=== PATIENT | male | born 1945 | race Caucasian/White ===

== ENCOUNTER 2016-11-17 12:32 | Inpatient (IN) | payer MEDICARE, BC ==
[2016-11-17] MEDS ORDERED: EPINEPHrine 1 MG/ML AMP ONE (12:45)
[2016-11-17] MEDS ORDERED: DEXAMETHASONE 10 MG/ML VIAL ONE (12:45)
[2016-11-17] MEDS ORDERED: diphenhydrAMINE INJ 50 MG/ML VIAL ONE (12:46)
[2016-11-17] MEDS ORDERED: EPINEPHrine 1 MG/ML AMP IM STA (12:46)
[2016-11-17] MEDS ORDERED: FAMOTIDINE 20 MG/2 ML VIAL ONE (12:46)
[2016-11-17] MEDS ORDERED: FAMOTIDINE 20 MG/50 ML 50 ML IV ONE ×2 (12:47→21:29)
[2016-11-17] MEDS ORDERED: DEXAMETHASONE 10 MG/ML VIAL IVP STA (12:47)
[2016-11-17] MEDS ORDERED: diphenhydrAMINE INJ 50 MG/ML VIAL IVP STA (12:47)
[2016-11-17] MEDS ORDERED: OXYMETAZOLINE NASAL SPRAY NAS ONE (12:58)
[2016-11-17] MEDS ORDERED: SODIUM CHLORIDE 0.9% 1,000 ML IV ONE ×2 (13:14→13:15)
[2016-11-17] MEDS ORDERED: LACTATED RINGERS 1,000 ML IV ONE (14:04)
[2016-11-17] MEDS ORDERED: BUPIVACAINE 0.5%-EPI 1:200000 PF 30 ML VIAL SUBQ ONE ×2 (14:20)
--- NOTE | 2016-11-17 14:44 | ED Physician Documentation ---
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 Review of Systems Nose: reports: Other (tongue swelling) Respiratory: denies: Dyspnea PD PAST MEDICAL HISTORY - Past Medical History Past Medical History: Yes Cardiovascular: Hypertension Respiratory: None Endocrine/Autoimmune: None GI: None : None HEENT: None Psych: None Musculoskeletal: None Derm: None - Past Surgical History Past Surgical History: Yes General: Colonoscopy - Present Medications Home Medications: Ambulatory Orders Medication Instructions Recorded Confirmed Metoprolol Tartrate 25 mg PO BID 11/19/14 11/17/16 Simvastatin [Zocor] 40 mg PO QPM 07/15/16 11/17/16 Aspirin [Aspir-Low] 81 mg PO DAILY 11/17/16 11/17/16 Fluticasone Propionate [Flovent 2 sprays INH DAILY 11/17/16 11/17/16 Diskus] Lisinopril/Hydrochlorothiazide 1 each PO DAILY 11/17/16 11/17/16 [Lisinopril-Hctz 20-25 mg Tab] Tadalafil [Cialis] 10 - 20 mg PO Q72H PRN 11/17/16 11/17/16 - Allergies Allergies/Adverse Reactions: Allergies Allergy/AdvReac Type Severity Reaction Status Date / Time lactase [From Dairy Aid] Allergy Anaphylaxis Verified 11/17/16 13:05 dairy products Allergy Anaphylaxis Uncoded 11/17/16 13:05 fluoride Allergy Anaphylaxis Uncoded 11/17/16 13:05 pollen Allergy Unknown Uncoded 11/17/16 13:05 trees Allergy Unknown Uncoded 11/17/16 13:05 - Social History Does the pt smoke?: No Smoking Status: Never smoker Does the pt drink ETOH?: Yes Does the pt have substance abuse?: No PD ED PE NORMAL - Vitals Vital signs reviewed: Yes - HEENT HEENT: Other (massive angioedema with tongue pressed against roof of mouth and swelling to sublingual region as well) - Cardiac Cardiac: RRR - Respiratory Respiratory: No respiratory distress, Clear bilaterally, Other (no wheeze or stridor) - Derm Derm: Other (no hives) Results - Vitals Vitals: Vital Signs - 24 hr 11/17/16 11/17/16 11/17/16 12:42 12:50 13:00 Heart Rate 70 130 H 125 H Respiratory 20 20 19 Rate Blood Pressure 168/92 H 160/75 H 149/73 H O2 Saturation 98 98 99 Oxygen O2 Source Room air PD MEDICAL DECISION MAKING - ED course ED course: immediately gave epi 0.3 IM and started IV and gave decadron, benadryl, pepcid called for anesthesia stat and Dr Suarez immediately to the ER to assist airway to difficult and Dr Suarez took pt to OR to attempt intubation with surgery standing by for possible emergent cric Dr Ureña called and also immediately came to the bedside pt slightly improved with meds given in the ER at the time he went to the OR called the dental office and it turns out the czech paste used today does contain flouride - so suspect this is the cause of sx and not the ACEI pt to go from OR to ICU Dr Miller hospitalist accepts pt after done in the OR - Critical Care Time(min): 30 Time Includes: Direct patient care, Reassess patient, Document care, Coordinate care, Medical consult, See progress note Departure - Departure Disposition: 66 [facility] DC/Xfer Clinical Impression: Angioedema Qualifiers: Encounter type: initial encounter Qualified Code(s): T78.3XXA - Angioneurotic edema, initial encounter Condition: Serious Discharge Date/Time: 11/17/16 13:15
[2016-11-17] MEDS ORDERED: SODIUM CHLORIDE FLUSH 0.9% 10 ML SYRINGE IVP PRN (14:45)
[2016-11-17] MEDS ORDERED: PHENOL THROAT SPRAY 177 ML MM PRN (14:50)
[2016-11-17] MEDS ORDERED: ONDANSETRON 4 MG/2 ML VIAL IVP PRN (14:50)
[2016-11-17] MEDS ORDERED: METOCLOPRAMIDE 10 MG/2 ML VIAL IVP PRN (14:50)
[2016-11-17] MEDS ORDERED: BENZOCAINE SPRAY MM PRN (14:50)
[2016-11-17] MEDS: PROPOFOL 1000 MG/100 ML 100 ML IV SCH ×2 (15:00→23:03)
[2016-11-17] MEDS ORDERED: KETAMINE 500 MG/10 ML VIAL IVP ONE (15:45)
[2016-11-17] MEDS ORDERED: MIDAZOLAM 2 MG/2 ML VIAL IVP ONE (15:45)
[2016-11-17] MEDS ORDERED: ceFAZolin 1 GM VIAL IV ONE (15:45)
[2016-11-17] MEDS ORDERED: PHENYLEPHRINE 50 MG/5 ML VIAL IV ONE (15:45)
[2016-11-17] MEDS ORDERED: ePHEDrine 50 MG/ML AMP IVP ONE (15:45)
[2016-11-17] MEDS ORDERED: SUCCINYLCHOLINE 200 MG/10 ML VIAL IVP ONE (15:45)
[2016-11-17] MEDS ORDERED: GLYCOPYRROLATE 1 MG/5 ML VIAL IVP ONE (15:45)
[2016-11-17] MEDS: HYDROmorphone 1 MG/ML SYRINGE IVP PRN ×2 (15:54→18:23)
[2016-11-17] MEDS: PANTOPRAZOLE 40 MG VIAL IVP SCH (15:58)
[2016-11-17] MEDS: SODIUM CHLORIDE FLUSH 0.9% 10 ML SYRINGE IVP SCH (15:58)
[2016-11-17 16:08] LABS: ABG ANALYSIS TIME 1604; ABG BASE EXCESS -3.4 mmol/L (-2.0-3.0); ABG HCO3 21.3 mmol/L (22.0-26.0); ABG PCO2 37 mmHg (34-45); ABG PH 7.38 (7.35-7.45); ABG TCO2 22.4 MMOL/L (21.0-29.0)
[2016-11-17 16:09] LABS: ABG MODE OF VENTILATION SIMV; ABG O2 DEVICE VENTILATOR; ABG OXYGEN SATURATION 99 % (94-98); ABG PEAK END EXPIRATORY PRESSU 5 cmH2O; ABG PRESSURE SUPPORT VENT 5 cmH2O; ABG RESPIRATORY RATE 12 b/min; ABG SATURATION PULSE OXIMETRY% 100 %; ABG SITE OF DRAW LEFT RADIAL; ALLEN TEST POSITIVE
--- NOTE | 2016-11-17 16:10 | OPERATIVE REPORT ---
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 POSTOPERATIVE DIAGNOSIS: Angioneurotic edema secondary to exposure to fluoride compromising his airwa y. PROCEDURE: Emergent tracheostomy. SURGEON: Jose Armando Ureña MD ANESTHESIA: Maggie Suarez MD, (general) plus 20 mL of 0.5% Marcaine with epinephrine. TIME: 1500 ESTIMATED BLOOD LOSS: Less than 20 mL. FLUIDS: 900 mL of crystalloid. DETAILS OF PROCEDURE: After informed consent was obtained detailing the risks of a possible tracheost kenneth, the patient was brought to the operative suite for safety reasons to have attempts made at gener al endotracheal anesthesia. Dr. Suarez and Javier Munoz were both present for the entire time and attem pted numerous times and with numerous maneuvers to have the patient intubated. There was no nasotrach eal tube available to allow a possible nasotracheal intubation. Several attempts were made with the G lideScope to place an endotracheal tube, but the edema was too much to allow for placement of the tub e, and in fact the 2 times that the tube was attempted to be placed, both times it was placed in the esophagus. I then attempted a retrograde intubation and was able to get the wire into the trachea, an d the wire to come out through the patient's nose followed by the catheter, but unfortunately, again, there was no nasotracheal tube that could be placed over this to permit for placement of this tube. Due to patient's declining O2 saturations, it was opted to discontinue this avenue and proceed with a tracheostomy. The skin was prepped and draped in the usual standard manner as best it could consider ing the fact that the patient was requiring constant bagging. A transverse incision was made in the s kin. Dissection down past the platysma was completed using Bovie electrocautery. The strap muscles we re seen, and every attempt was made to come into the middle of the strap muscles; however, the anteri or jugular vein on the right-hand side was entered. It caused a significant amount of bleeding that h ad to be suture ligated using 2-0 silk suture ligatures. Once this was controlled, dissection could b e carried out past the strap muscles to the trachea. There was a leak of anesthesia gas due to the pr evious opening in the trachea with the needle hole. Once the trachea itself was identified, a trachea l hook was used to lift it. The 2nd tracheal ring was selected as the source for the opening into the trachea. Bovie electrocautery was used to dissect above and below this ring. Next, 3-0 Prolene sutur es were placed on either side as stay sutures. The trachea was then opened in the midline. A trap doo r was not created. Instead just a vertical incision was made, and an attempt to place a size 6 trache ostomy tube was aborted when there was some bleeding from a suture that had slipped off the anterior jugular, as well as the balloon popping. A size 6 endotracheal tube was then obtained and placed into the opening to allow us to ventilate the patient while I attended to the bleeding from the anterior jugular vein on the inferior aspect. Again, this was suture ligated using a 3-0 silk suture ligature. Once we obtained another size 6 tracheostomy tube, the endotracheal tube was removed, and the trache ostomy tube was placed this time without difficulty. The balloon was inflated. Good CO2 was noted to be returning, and the patient was being ventilated well. The skin was approximated on either side usi ng a 2-0 nylon in a mattress fashion, which was then secured to the tracheostomy appliance. The 2 sta y sutures were taped to the anterior chest wall just in case there was any dislodgement of the trache ostomy tube necessitating replacement. This was for safety reasons. The patient then had a dressing p laced and was taken to the intensive care unit in good and stable condition having tolerated the proc edure well. The anticipation is once the angioneurotic edema resolves with time this tracheostomy tube should be able to be removed without difficulty, and the patient should be able to breathe on his own. JOB #: [id number] EXT JOB #:[id number]
[2016-11-17 16:12] LABS: ABG PO2 175 mmHg (80-100)
[2016-11-17] MEDS ORDERED: LIDOCAINE JELLY 2% 5 ML TUBE TOP ONE (16:45)
[2016-11-17] MEDS: D5NS W/20 MEQ KCL 1,000 ML IV SCH (17:00)
--- NOTE | 2016-11-17 17:03 | XRAY Report ---
FRONTAL CHEST: 11/17/2016 CLINICAL INDICATION: Status post tracheostomy. COMPARISON: 04/10/2008 Frontal view of the chest demonstrates an enlarged cardiac silhouette. A hiatal hernia is likely pre sent. There is left basilar air-space disease, which may represent atelectasis or infiltrate. Calci fied pleural plaquing is stable. No effusion or pneumothorax is present. A new tracheostomy tube is seen in the trachea above the level of the clavicles. IMPRESSION: POSTOPERATIVE CHANGES OF TRACHEOSTOMY. LEFT BASILAR ATELECTASIS OR INFILTRATE. CARDIOM EGALY AND HIATAL HERNIA. JOB #: [id number] EXT JOB #:[id number]
[2016-11-17] MEDS: PIPERACILLIN/TAZOBACTAM 3.375 GM in SODIUM CHLORIDE 0.9% MINIBAG 100 ML IV SCH (18:22)
[2016-11-17] MEDS ORDERED: diphenhydrAMINE INJ 50 MG/ML VIAL IVP PRN (18:43)
[2016-11-17] MEDS ORDERED: CHLORHEXIDINE GLUCONATE 15 ML UDC PO SCH (21:00)
[2016-11-17] MEDS ORDERED: FAMOTIDINE 20 MG in SODIUM CHLORIDE 0.9% 50 ML IV SCH (21:00)
--- NOTE | 2016-11-17 21:27 | HISTORY & PHYSICAL EXAMINATION ---
DATE OF ADMISSION: 11/17/2016 PRIMARY CARE PROVIDER: Oscar James MD ADMITTING PROVIDER: Mehnaz Miller MD CHIEF COMPLAINT: Severe throat swelling resulting in emergent tracheostomy. HISTORY OF PRESENT ILLNESS: The patient is a 71-year-old white male who is followed by Oscar James and is described in the medical record as not having any major medical issues. History is obtained from the EMR and some from the patient. He is currently intubated on propofol and it is difficult to ask questions of him. He is CRITICALLY ALLERGIC TO FLUORIDE. HE IS ALSO ALLERGIC TO POLLEN, TREES, DAIRY. He went to go see his dentist today for a teeth cleaning from what I understand and started developing a swollen tongue, and inability to speak. He took some Benadryl, but the swelling got worse and he brought himself to the emergency room, as he was having more and more dyspnea. He had massive angioedema with the tongue pressed against the roof of his mouth and swelling to the sublingual regions as well. He had no wheezing or stridor and on the skin he had no hives. He was given Decadron, Benadryl, Pepcid and epinephrine. Anesthesia was consulted stat, as was General Surgery, Dr. Ureña. Feeling that he needed urgent intubation with General Surgery standby for emergent cricothyroidotomy, he was taken to the OR. He was slightly improved with medications by the time he went to the OR. Dr. Williamson called the dental office and it turns out that the gibraltarian paste used today did contain fluoride, so the suspicion is either that he has an allergic reaction to the fluoride from a contact dermatitis or angioneurotic edema from an KAREEN inhibitor. In the OR, wire needed to be done through trachea and Anesthesia was unable to intubate using the guidewire. As such, he ended up having a tracheostomy. He is now in ICU. Awake, alert. Able to actually gesticulate with his hand and answer questions and use a clipboard in spite of being on Diprivan. Currently, his only discomfort is at throat. He denies wheezing, chest pain. He denies abdominal pain. He has no itching, no hives. His tongue and swelling have much improved. PAST MEDICAL HISTORY: 1. Hypertension. 2. Benign prostatic hypertrophy with erectile dysfunction. 3. Allergic rhinitis and sinusitis. 4. Shoulder impingement. 5. Metabolic syndrome with hyperlipidemia and obesity and hypertension. MEDICATIONS: 1. Aspirin 81 daily. 2. Cialis 10-20 mg p.o. q.72 hours p.r.n. 3. Flovent 2 sprays daily. 4. Hydrochlorothiazide/lisinopril 20/25 mg p.o. daily. 5. Metoprolol 25 mg p.o. b.i.d. 6. Zocor 40 mg p.o. q.p.m. SOCIAL HISTORY: He is a nonsmoker. Rare alcohol drinker. We have asked him if he would like us to identify and contact any family members. He says no. Specifically, the emergency contact listed for him is his son and he is again asking us to not contact him. FAMILY HISTORY: At this time unobtainable. REVIEW OF SYSTEMS: At this time unobtainable other than the above review of systems. PHYSICAL EXAMINATION GENERAL: He is examined in ICU after he has come out of the OR. He is alert, oriented to person and place, again gesticulating with his hands an answering yes/no with his head, shaking and head nodding. VITAL SIGNS: Temperature is 36.3, pulse is 108 to 109, blood pressure 127/79, respirations 19 and he is 99% saturated on 70% FIO2. Over the course of intubation to now, his vent settings have been adjusted. On an SIMV of a tidal volume of 800 with a PEEP of 5 and a pressure support of 5 at a rate of 12, his pH was 7.38, pCO2 37, pO2 175. Since that time, I have reduced tidal volume to 600 and have been dropping FIO2 with excellent respiratory therapy support. HEENT: On head and neck examination, there are no contusions. Pupils are reactive. I had him stick out his tongue and you could start to see normal anatomy with rugae and papillae. Oral mucosa is pink and moist. Lips are not swollen. Uvula is swollen and tonsillar folds are swollen, but not closed. There is no stridor. There is no facial edema, no nasal labial edema, no ear edema. NECK: Supple without any adenopathy. No JVD. LUNGS: Clear other than upper airway tubular breath sounds from the tracheostomy. No wheezing. No use of accessory muscles. CARDIOVASCULAR: PMI is normally placed with a tachycardic, regular rate and rhythm. No murmurs, rubs, or gallops. ABDOMEN: Large, soft, nontender, overweight. No organomegaly. EXTREMITIES: No clubbing, cyanosis, or edema. Nonblanching petechiae present in the right medial knee skin and right medial calf. Good foot pulses. NEUROLOGICAL: He is awake, alert. He follows 2-step commands. For instance, I had him reach up and touch his nose with his left index finger and he did so. I said raise your left leg and touch year heel to your right knee and he did so. There are no tremors. No focal loss of strength. IMAGING: Chest x-ray shows a hiatal hernia, left basilar airspace disease from atelectasis or infiltrate. A new tracheostomy tube. Cardiomegaly. ASSESSMENT/PLAN 1. Angioedema. Thought process in the history as above is that it is either angioedema from KAREEN inhibitor or allergic reaction to the fluoride in his dental preparation. Since he is responding to steroids in antihistamines, the thought that is more anaphylaxis than KAREEN inhibitor induced angioedema. In any case, because of such a massive reaction, I would recommend stopping that KAREEN inhibitor. If there is even the slightest chance that it caused his angioedema, it was a fairly severe reaction and could be life-threatening in another circumstance. Will change him to an ARB or calcium channel eran depending on what his primary care provider, Dr. James, would want. So in the meantime, will give him steroids, Pepcid, and Benadryl all IV. He has already improved substantially from what Dr. Williamson described to now. We may be able to extubate him tomorrow. Dr. Ureña is managing the tracheostomy. 2. Hypertension. Blood pressure has been controlled and stable. Will use clonidine patch or sublingual. 3. Cardiomegaly on chest x-ray in a patient who is overweight and hypertensive. Check echo for left ventricular hypertrophy. 4. FULL CODE STATUS. 5. Deep venous thrombosis prophylaxis with Lovenox. JOB #: [id number] EXT JOB #:[id number] [facility]
[2016-11-17] MEDS: CHLORHEXIDINE GLUCONATE 15 ML UDC PO SCH (21:44)
[2016-11-17] MEDS: methylPREDNISolone SUCCINATE 125 MG/2 ML VIAL IVP SCH (22:29)
[2016-11-18] MEDS: PIPERACILLIN/TAZOBACTAM 3.375 GM in SODIUM CHLORIDE 0.9% MINIBAG 100 ML IV SCH ×2 (00:14→06:23)
[2016-11-18] MEDS: D5NS W/20 MEQ KCL 1,000 ML IV SCH ×2 (05:05→15:40)
[2016-11-18 05:18] LABS: BASOPHILS % (AUTO) 0.6 %; HCT - HEMATOCRIT 34.4 % (42.0-52.0); HGB - HEMOGLOBIN 11.3 g/dL (14.0-18.0); LYMPHOCYTES % (AUTO) 3.9 %; MEAN CORPUSCULAR HEMOGLOBIN 31.2 pg (27.0-31.0); MEAN CORPUSCULAR HGB CONC 32.8 g/dL (32.0-36.0); MEAN CORPUSCULAR VOLUME 95.4 fL (80.0-94.0); MEAN PLATELET VOLUME 8.3 fL (7.4-11.4); MONOCYTES % (AUTO) 1.4 %; NEUTROPHILS % (AUTO) 94.1 %; RED BLOOD COUNT 3.61 10^6/uL (4.70-6.10); UNCORRECTED WHITE BLOOD COUNT 12.9 x10^3/uL; WHITE BLOOD COUNT 12.9 x10^3/uL (4.8-10.8)
[2016-11-18 05:25] LABS: ABG PCO2 29 mmHg (34-45); ABG PH 7.41 (7.35-7.45)
[2016-11-18 05:26] LABS: ABG BASE EXCESS -5.5 mmol/L (-2.0-3.0); ABG MODE OF VENTILATION SIMV; ABG O2 DEVICE VENTILATOR; ABG OXYGEN SATURATION 97 % (94-98); ABG PO2 96 mmHg (80-100); ABG RESPIRATORY RATE 12 b/min; ABG SATURATION PULSE OXIMETRY% 98 %; ABG SITE OF DRAW RIGHT RADIAL; ABG TCO2 18.9 MMOL/L (21.0-29.0); ALLEN TEST POSITIVE
[2016-11-18 05:27] LABS: ABG PEAK END EXPIRATORY PRESSU 5 cmH2O; ABG PRESSURE SUPPORT VENT 5 cmH2O
[2016-11-18 05:34] LABS: BILIRUBIN,TOTAL 0.9 mg/dL (0.2-1.0); CALCIUM 7.4 mg/dL (8.5-10.3); CREATININE 1.5 mg/dL (0.6-1.2); POTASSIUM 4.7 mmol/L (3.5-5.0); TOTAL PROTEIN 5.9 g/dL (6.7-8.2)
[2016-11-18 05:50] LABS: BAND NEUTROPHILS % (MANUAL) 1 %; LYMPHOCYTES % (MANUAL) 3 %; NEUTROPHILS % (MANUAL) 93 %; PLATELET ESTIMATE, MANUAL NORMAL (130-450,000) (NORMAL); PLATELET MORPHOLOGY NORMAL APPEARANCE (NORMAL); TOTAL CELLS COUNTED 100
[2016-11-18 05:51] LABS: NP AUTO DIFFERENTIAL? YES; NP MAN DIFFERENTIAL? NO
[2016-11-18] MEDS: SODIUM CHLORIDE FLUSH 0.9% 10 ML SYRINGE IVP SCH ×2 (06:05→14:33)
[2016-11-18] MEDS: methylPREDNISolone SUCCINATE 125 MG/2 ML VIAL IVP SCH ×2 (06:23→14:25)
[2016-11-18] MEDS: PANTOPRAZOLE 40 MG VIAL IVP SCH (06:23)
[2016-11-18] MEDS: PROPOFOL 1000 MG/100 ML 100 ML IV SCH (06:26)
[2016-11-18] MEDS ORDERED: PANTOPRAZOLE 40 MG VIAL IVP SCH ×2 (07:00)
--- NOTE | 2016-11-18 07:48 | PROVIDER PROGRESS NOTE ---
Subjective - Prog Note Date Prog Note Date: 11/18/16 Prog Note Time: 07:47 - Subjective Pt reports feeling: Improved Subjective: tongue swelling is almost all gone. had been extubated by Dr. Ureña and now able to talk. voice is thick, relates that he had a severe reaction after a dentist visit 1 year ago. this same one just not intubated. Current Medications - Current Medications Current Medications: Active Medications Benzocaine (Hurricaine) 1 sprays MM DAILY PRN PRN Reason: Throat Pain Chlorhexidine Gluconate (Peridex) 15 ml PO BID [facility] Last Admin: 11/17/16 21:44 Dose: 15 ml Diphenhydramine HCl (Benadryl Inj) 25 mg IVP Q6H PRN PRN Reason: Allergy Symptoms Enoxaparin Sodium (Lovenox) 40 mg SUBQ DAILY [facility] Hydromorphone HCl (Dilaudid Inj) 0.5 mg IVP Q1HR PRN PRN Reason: PAIN Last Admin: 11/17/16 18:23 Dose: 0.5 mg Potassium Chloride/Dextrose/Sod Cl () 1,000 mls @ 100 mls/hr IV .Q10H [facility] Last Admin: 11/18/16 05:05 Dose: 100 mls/hr Piperacillin Sod/Tazobactam (Sod 3.375 gm/ Sodium Chloride) 100 mls @ 200 mls/ hr IV Q6HR [facility] Stop: 11/18/16 09:00 Last Admin: 11/18/16 06:23 Dose: 200 mls/hr Famotidine 20 mg/ Sodium (Chloride) 52 mls @ 100 mls/hr IV BID [facility] Last Admin: 11/17/16 21:44 Dose: 100 mls/hr Methylprednisolone Sodium Succinate (Solu-Medrol (125mg Vial)) 125 mg IVP TID [facility] Last Admin: 11/18/16 06:23 Dose: 125 mg Metoclopramide HCl (Reglan Inj) 10 mg IVP Q6H PRN PRN Reason: Nausea / Vomiting Ondansetron HCl (Zofran Inj) 4 mg IVP Q6H PRN PRN Reason: Nausea / Vomiting Pantoprazole Sodium (Protonix) 40 mg IVP QDAC [facility] Last Admin: 11/18/16 06:23 Dose: 40 mg Phenol/Menthol (Chloraseptic) 1 sprays MM Q2HR PRN PRN Reason: Throat Pain Sodium Chloride (Normal Saline Flush 0.9%) 10 ml IVP PRN PRN PRN Reason: NEEDED PER PROVIDER ORDERS Sodium Chloride (Normal Saline Flush 0.9%) 10 ml IVP Q8HR [facility] Last Admin: 11/18/16 06:05 Dose: Not Given Metoprolol Tartrate 25 mg PO BID 11/19/14 Simvastatin [Zocor] 40 mg PO QPM 07/15/16 Aspirin [Aspir-Low] 81 mg PO DAILY 11/17/16 Fluticasone Propionate [Flovent Diskus] 2 sprays INH DAILY 11/17/16 Lisinopril/Hydrochlorothiazide [Lisinopril-Hctz 20-25 mg Tab] 1 each PO DAILY Tadalafil [Cialis] 10 - 20 mg PO Q72H PRN 11/17/16 Objective - Vital Signs/Intake & Output Reviewed Vital Signs: Yes Vital Signs: Vital Signs Pulse 11/18/16 07:30 78 11/18/16 05:10 75 Intake & Output: Intake & Output 11/15/16 11/16/16 11/17/16 11/18/16 23:59 23:59 23:59 23:59 Intake Total 1787 1054 Output Total 375 370 Balance 1412 684 - Objective General Appearance: positive: No acute distress, Alert Eyes Bilateral: positive: PERRL, EOMI Neck: positive: No JVD, Other (trach tube in). negative: Stiff neck Respiratory: positive: Chest non-tender, Rhonchi (upper airway tubular breath sounds diffusely from the trach). negative: Wheezes, Rales Cardiovascular: positive: Regular rate & rhythm, No murmur. negative: Gallop/S4 , Friction rub Abdomen: positive: Non-tender, Other (large belly panus). negative: Guarding, Rebound Skin: positive: Color nml, No rash, Warm, Dry Extremities: positive: Non-tender, Full ROM, No pedal edema Neurologic/Psychiatric: positive: Oriented x3, CN's nml (2-12), Motor nml - Lab Results Fish Bones: 11/18/16 05:04 11/18/16 05:04 Other Labs: Lab Results x24hrs 0211/18/16 11/18/16 Range/Units 05:15 05:04 05:04 WBC 12.9 H (4.8-10.8) x10^3/uL RBC 3.61 L (4.70-6.10) 10^6/uL Hgb 11.3 L (14.0-18.0) g/dL Hct 34.4 L (42.0-52.0) % MCV 95.4 H (80.0-94.0) fL MCH 31.2 H (27.0-31.0) pg MCHC 32.8 (32.0-36.0) g/dL RDW 16.0 H (12.0-15.0) % Plt Count 140 (130-450) 10^3/uL MPV 8.3 (7.4-11.4) fL Neut # Not Reportable Lymph # Not Reportable [place] # Not Reportable Eos # Not Reportable Baso # Not Reportable Absolute Nucleated RBC Not Reportable Total Counted 100 Band Neuts % (Manual) 1 (0 - 10) % Neutrophils # (Manual) 12.1 H (1.5-6.6) 10^3/uL Lymphocytes # (Manual) 0.4 L (1.5-3.5) 10^3/uL Monocytes # (Manual) 0.4 (0.0-1.0) 10^3/uL Nucleated RBCs Not Reportable Differential Comment MANUAL DIFFERENTIAL Platelet Estimate NORMAL (130-450,000) (NORMAL) Platelet Morphology NORMAL APPEARANCE (NORMAL) RBC Morph Micro Appear NORMAL APPEARANCE (NORMAL) Bld Gas Analysis Time 0524 Sample Site RIGHT RADIAL ABG pH 7.41 (7.35-7.45) ABG pCO2 29 L (34-45) mmHg ABG pO2 96 (80-100) mmHg ABG HCO3 18.0 L (22.0-26.0) mmol/L ABG Total CO2 18.9 L (21.0-29.0) MMOL/L ABG O2 Saturation 97 (94-98) % ABG Oximetry Spot Check 98 % ABG Base Excess -5.5 L (-2.0-3.0) mmol/L Larry Test POSITIVE Respiration Rate 12 b/min O2 Delivery Device VENTILATOR Vent Mode SIMV FiO2 40.00 Tidal Volume 600 mL PEEP 5 cmH2O Pressure Support Vent 5 cmH2O Sodium 134 L (135-145) mmol/L Potassium 4.7 (3.5-5.0) mmol/L Chloride 104 (101-111) mmol/L Carbon Dioxide 20 L (21-32) mmol/L Anion Gap 10.0 (6-13) BUN 27 H (6-20) mg/dL Creatinine 1.5 H (0.6-1.2) mg/dL Estimated GFR (MDRD) 46 L (>89) Glucose 181 H (70-100) mg/dL Calcium 7.4 L (8.5-10.3) mg/dL Total Bilirubin 0.9 (0.2-1.0) mg/dL AST 21 (10-42) IU/L ALT 14 (10-60) IU/L Alkaline Phosphatase 41 L (42-121) IU/L Total Protein 5.9 L (6.7-8.2) g/dL Albumin 3.0 L (3.2-5.5) g/dL Globulin 2.9 (2.1-4.2) g/dL Albumin/Globulin Ratio 1.0 (1.0-2.2) 11/17/16 Range/Units 15:56 WBC (4.8-10.8) x10^3/uL RBC (4.70-6.10) 10^6/uL Hgb (14.0-18.0) g/dL Hct (42.0-52.0) % MCV (80.0-94.0) fL MCH (27.0-31.0) pg MCHC (32.0-36.0) g/dL RDW (12.0-15.0) % Plt Count (130-450) 10^3/uL MPV (7.4-11.4) fL Neut # Lymph # [place] # Eos # Baso # Absolute Nucleated RBC Total Counted Band Neuts % (Manual) (0 - 10) % Neutrophils # (Manual) (1.5-6.6) 10^3/uL Lymphocytes # (Manual) (1.5-3.5) 10^3/uL Monocytes # (Manual) (0.0-1.0) 10^3/uL Nucleated RBCs Differential Comment Platelet Estimate (NORMAL) Platelet Morphology (NORMAL) RBC Morph Micro Appear (NORMAL) Bld Gas Analysis Time 1604 Sample Site LEFT RADIAL ABG pH 7.38 (7.35-7.45) ABG pCO2 37 (34-45) mmHg ABG pO2 175 H* (80-100) mmHg ABG HCO3 21.3 L (22.0-26.0) mmol/L ABG Total CO2 22.4 (21.0-29.0) MMOL/L ABG O2 Saturation 99 H (94-98) % ABG Oximetry Spot Check 100 % ABG Base Excess -3.4 L (-2.0-3.0) mmol/L Larry Test POSITIVE Respiration Rate 12 b/min O2 Delivery Device VENTILATOR Vent Mode SIMV FiO2 100.00 Tidal Volume 800 mL PEEP 5 cmH2O Pressure Support Vent 5 cmH2O Sodium (135-145) mmol/L Potassium (3.5-5.0) mmol/L Chloride (101-111) mmol/L Carbon Dioxide (21-32) mmol/L Anion Gap (6-13) BUN (6-20) mg/dL Creatinine (0.6-1.2) mg/dL Estimated GFR (MDRD) (>89) Glucose (70-100) mg/dL Calcium (8.5-10.3) mg/dL Total Bilirubin (0.2-1.0) mg/dL AST (10-42) IU/L ALT (10-60) IU/L Alkaline Phosphatase (42-121) IU/L Total Protein (6.7-8.2) g/dL Albumin (3.2-5.5) g/dL Globulin (2.1-4.2) g/dL Albumin/Globulin Ratio (1.0-2.2) Assessment/Plan - Problem List (1) Angioedema Impression: Improving. I've carefullly explained that the cause may be the KAREEN or the allergy. would recommend stopping the KAREEN. still on steroids but they are causing hyperglycemia so will decrease dose. off by tomorrow. Qualifiers: Encounter type: subsequent encounter Qualified Code(s): T78.3XXD - Angioneurotic edema, subsequent encounter (2) Tracheostomy in place Impression: being managed by Adelita. plan is fenestrated trach. home tomorrow if ok. he will see Dr. Ureña in the office for fu.
[2016-11-18] MEDS: ENOXAPARIN 40 MG/0.4 ML SYRINGE SUBQ SCH (09:12)
[2016-11-18] MEDS: CHLORHEXIDINE GLUCONATE 15 ML UDC PO SCH ×2 (09:12→21:46)
[2016-11-18] MEDS ORDERED: FAMOTIDINE IV 20 MG/50 ML IV SCH (10:00)
[2016-11-18] MEDS ORDERED: SIMVASTATIN 40 MG PO SCH (21:00)
[2016-11-18] MEDS: METOPROLOL TARTRATE 25 MG TABLET PO SCH (21:53)
[2016-11-19] MEDS: SODIUM CHLORIDE FLUSH 0.9% 10 ML SYRINGE IVP SCH ×2 (07:44→07:45)
[2016-11-19] MEDS ORDERED: methylPREDNISolone 4 MG TABLET PO SCH (08:00)
[2016-11-19] MEDS: METOPROLOL TARTRATE 25 MG TABLET PO SCH (08:13)
[2016-11-19] MEDS: ENOXAPARIN 40 MG/0.4 ML SYRINGE SUBQ SCH (08:13)
[2016-11-19] MEDS: CHLORHEXIDINE GLUCONATE 15 ML UDC PO SCH (08:14)
--- NOTE | 2016-11-19 08:28 | Discharge Plan ---
Discharge Plan Diet: Regular Activity Restrictions: No Restrictions Shower Restrictions: (per Dr. Andujar) Driving Restrictions: No No Smoking: If you smoke, Please STOP! Call for help. Disposition: 01 Home, Self Care Condition: Good Prescriptions: Amlodipine Besylate [Norvasc] 10 mg PO DAILY #30 tablet Instruction Topics: Tube Tracheostomy Adjust, Tube Tracheostomy Questions, Tracheostomy, Tracheostomy Clean, Tracheostomy Care, Tracheostomy Tube Stoma, Tracheostomy Stoma Care Dc Additional Instructions or Follow Up instructions: you were admitted because your tongue and mouth lining were so swollen you couldn't breathe and caused your airway to close. We had to put in an emergency tracheostomy. Dr. Ureña will want to see you in the office in the next week and will most like pull the tube. I have stopped your lisinopril since it is associated with angioedema, the swelling you came in with. You also feel fluoride may have a role from your dentist' office. Whichever the cause, you cannot risk staying on the lisinopril. So I have ordered you a new blood pressure medicine called [facility]. Please see Dr. James in the next week to assess your blood pressure and to see if he wants to change my choice. Keep your tracheostomy tube attached to the neck band to prevent accidental dislodge. Keep these straps in place when you change the underlying guaze and when you clean the tracheostomy tube. Change the gauze daily or more frequently if it becomes saturated. Clean around the tracheostomy tube with water daily. Secure the tube with your hand if you need to cough. If the tube becomes dislodged you should seek immediate care in the emergency department. The sutures will be removed when the tracheostomy tube is removed. Follow-up with: Avery James MD [Primary Care Provider] - Jose Armando Ureña MD [Provider Admit Priv/Credential] -
[2016-11-19] MEDS ORDERED: ASPIRIN EC 81 MG TABLET PO SCH (09:00)
[2016-11-19] MEDS ORDERED: CETIRIZINE 10 MG TABLET PO SCH (09:00)
--- NOTE | 2016-11-19 09:10 | PROVIDER PROGRESS NOTE ---
Subjective - General Admit Date: 11/17/16 Procedure Performed: tracheostomy - Review of Systems Wound/Incisions: positive: Healing well General: positive: No symptoms Pulmonary: positive: Other (no stridor). negative: Shortness of breath, Wheezing Cardiovascular: positive: No symptoms Gastrointestinal: positive: No symptoms Psychiatric: positive: No symptoms Objective - Patient Data Reviewed Vital Signs: Yes Vital Signs: Vital Signs x48h Temp Pulse Resp BP BP Pulse Ox 11/19/16 08:13 121/64 11/19/16 02:00 36.7 C 85 16 138/57 H 96 Weight: Weight 11/17/16 11/18/16 11/19/16 23:59 23:59 23:59 Weight (kg) 104.7 kg Intake & Output: Intake and Output Totals x24h 11/17/16 11/18/16 11/19/16 23:59 23:59 23:59 Intake Total 1787 3517 1330 Output Total 375 1575 885 Balance 1412 1942 445 - Lab Results Lab Results: 11/18/16 05:04 11/18/16 05:04 - Current Medications Current Medications: Current Medications Generic Name Dose Route Start Last Admin Trade Name Freq PRN Reason Stop Dose Admin Aspirin 81 mg 11/19/16 09:00 11/19/16 08:12 Ecotrin PO 81 mg DAILY ARIANA Administration Cetirizine HCl 10 mg 11/19/16 09:00 11/19/16 08:13 Zyrtec PO 10 mg DAILY ARIANA Administration Chlorhexidine Gluconate 15 ml 11/17/16 21:00 11/19/16 08:14 Peridex PO Not Given BID ARIANA Enoxaparin Sodium 40 mg 11/18/16 09:00 11/19/16 08:13 Lovenox SUBQ 40 mg DAILY ARIANA Administration Hydromorphone HCl 0.5 mg 11/17/16 14:50 11/17/16 18:23 Dilaudid Inj IVP 0.5 mg Q1HR PRN Administration PAIN Methylprednisolone 20 mg 11/19/16 08:00 11/19/16 08:13 Medrol PO 20 mg DAILYWM ARIANA Administration Metoprolol Tartrate 25 mg 11/18/16 21:00 11/19/16 08:13 Lopressor PO 25 mg BID ARIANA Administration Sodium Chloride 10 ml 11/17/16 22:00 11/19/16 07:45 Normal Saline Flush 0.9% IVP Not Given Q8HR ARIANA - Physical Exam Wound/Incisions: positive: Healing well ENT: positive: Other (fenestrated trach in place and secured. minimal right sided neck swelling) Respiratory: positive: No respiratory distress, Breath sounds nml Cardiovascular: positive: Regular rate & rhythm Extremities: positive: No pedal edema Neurologic/Psychiatric: positive: Oriented x3 Impression/Plan - Problem List Problem List: s/p tracheostomy for angioedema POD 2 - plan for DC to home with fenestrated trach. Instructions provided in DC summary. - Will follow up in [address] Ureña for tracheostomy removal.
[2016-11-19 13:47] VITALS: BP 114/55
--- NOTE | 2016-11-19 16:22 | DISCHARGE SUMMARY ---
DATE OF ADMISSION: 11/17/2016 DATE OF DISCHARGE: 11/19/2016 DISCHARGE DIAGNOSES 1. Angioedema. 2. Tracheostomy in place. 3. Hypertension. 4. Cardiomegaly. DISCHARGE MEDICATIONS 1. Aspirin 81 mg p.o. daily. 2. Cialis 10-20 mg p.o. q.72 hours. p.r.n. 3. Flovent 50 mcg 2 sprays inhalation daily. 4. Metoprolol tartrate 25 mg p.o. b.i.d. 5. Zocor 40 mg p.o. q.p.m. 6. Zyrtec 10 mg p.o. daily. 7. Amlodipine 10 mg p.o. daily. 8. Lisinopril has been discontinued. PRINCIPAL PROCEDURE: Tracheostomy and intubation. HOSPITAL COURSE: The patient is a 71-year-old white male who regards himself as relatively healthy but says that he had an ALLERGIC REACTION TO FLUORIDE about a year ago. Went to the dentist's office and noticed that he had a mouth rash with swelling of his tongue. That resulted in a visit to the emergency room on November 19, 2014. Six months later he went to the dentist and remarked on the reaction, so they used baking soda only and he had no reaction at all in the mouth. Today he went to the dentist, again making sure that they did not use fluoride. However, when he got home he started having tongue swelling, shortness of breath, and his airway was starting to get compromised. He was brought to the emergency room where epinephrine, steroids, and Pepcid were given. There was a stat consult with General Surgery and Anesthesia, and patient was taken to the OR emergently to intubate him. He ended up needing tracheostomy. Over the next 24-48 hours the swelling of his tongue, mouth, etc. , completely resolved. He was able to be taken off the ventilator. Steroids were discontinued. Because we do not know if it was the fluoride in the dental products that he stated that he was exposed to versus the KAREEN inhibitor that he is on, I told him that would probably be lin if he stopped the KAREEN inhibitor. I started him on Norvasc. He will need to follow up with his primary care provider, Dr. James, in the next week or two to see if Norvasc is covering his blood pressure and to see if Dr. James would like to change his blood pressure medicine to another different one. He received tracheostomy cleaning instruction before discharge. He is to see Dr. Ureña in the next week. Dr. Ureña says he will most likely remove the fenestrated tracheostomy and allow the wound to heal normally. He is an exceedingly pleasant man. He was discharged in stable condition. Temperature is 36.9, pulse 87, blood pressure 114/55, respirations 20, 98% on room air. The only thing of note is that of cardiomegaly on chest x-ray. He is overweight and hypertensive, and maybe an echocardiogram should be considered in the outpatient setting. During his stay blood pressure was controlled. Greater than 30 minutes was spent coordinating discharge. JOB #: [id number] EXT JOB #:[id number] DEANNA
[2016-11-19] MEDS ORDERED: ATORVASTATIN 10 MG TABLET PO SCH (21:00)
== END 2016-11-19 10:45 | disposition home or self-care (01) | DRG 3 ==
LOC: ED 12:32 → ICU 14:45
PROVIDERS: ADMIT Surgery; ATTEND Specialist
PROC: 0B110F4 Bypass Trachea to Cutaneous with Tracheostomy Device, Open Approach (ICD-10-PCS; principal; 2016-11-17 13:15)
PROC: 05QP0ZZ Repair Right External Jugular Vein, Open Approach (ICD-10-PCS; principal; 2016-11-17 13:15)
PROC: 5A1935Z Respiratory Ventilation, Less than 24 Consecutive Hours (ICD-10-PCS; principal; 2016-11-17 13:15)
DX: T78.3XXA Angioneurotic edema, initial encounter (principal); I97.51 Accidental puncture and laceration of a circulatory system organ or structure during a circulatory system procedure; I11.9 Hypertensive heart disease without heart failure; T50.995A Adverse effect of other drugs, medicaments and biological substances, initial encounter; T46.4X5A Adverse effect of angiotensin-converting-enzyme inhibitors, initial encounter; Y83.8 Other surgical procedures as the cause of abnormal reaction of the patient, or of later complication, without mention of misadventure at the time of the procedure; Y92.531 Health care provider office as the place of occurrence of the external cause; Y92.234 Operating room of hospital as the place of occurrence of the external cause; N40.0 Benign prostatic hyperplasia without lower urinary tract symptoms; N52.1 Erectile dysfunction due to diseases classified elsewhere; J30.9 Allergic rhinitis, unspecified; J32.9 Chronic sinusitis, unspecified; E88.81 Metabolic syndrome and other insulin resistance; E78.5 Hyperlipidemia, unspecified; E66.9 Obesity, unspecified; Z68.34 Body mass index [BMI] 34.0-34.9, adult; Z79.82 Long term (current) use of aspirin; Z79.899 Other long term (current) drug therapy
CPT/HCPCS: 36415; 36600; 71010; 80053; 82803; 85025; 87150; 87640; 94002; 94003; 96372; 96374; 96375; 99284; 99291

== ENCOUNTER 2018-02-28 08:00 | Outpatient (CLI) | payer MEDICARE, BC ==
[2018-02-28 13:17] LABS: PSA FREE 0.287 ng/mL (0.16-2.81)
[2018-02-28 13:18] LABS: PSA TOTAL 1.059 ng/mL (0.000-2.000)
== END 2018-02-28 08:01 ==
LOC: LAB.WCP 08:00
PROVIDERS: ATTEND Family Medicine
DX: R97.20 Elevated prostate specific antigen [PSA] (principal)
CPT/HCPCS: 36415; 84154

== ENCOUNTER 2018-10-02 14:20 | Outpatient (CLI) | payer MEDICARE, BC | END 2018-10-02 14:21 | disposition critical access hospital (66) | LOC: EMS 14:20 | PROVIDERS: ATTEND Surgery | DX: R55 Syncope and collapse (principal); R11.10 Vomiting, unspecified; R19.7 Diarrhea, unspecified | CPT/HCPCS: A0425; A0427 ==